=== PATIENT | female | born 2000 | race Caucasian/White ===

== ENCOUNTER 2021-01-29 17:55 | Emergency (ER) | payer OTHER ==
[~2021-01-29] VITALS: Ht 139.7 cm; Wt 50.0 kg
[~2021-01-29 17:55] MED LIST: AMOXICILLIN/PO400 MG PO; MOTRIN, CH20 MG/1 ML OR
[2021-01-29] MEDS ORDERED: ZOFRAN4 MG/TAB PO ×2 (19:15→20:34)
[2021-01-29 19:22] VITALS: BP 135/89
== END 2021-01-29 19:35 | disposition home or self-care (01) ==
LOC: ED 17:55
DX: B34.9 Viral infection, unspecified (principal); Z20.822 Contact with and (suspected) exposure to COVID-19

== ENCOUNTER 2021-04-23 11:52 | Emergency (ER) | payer OTHER ==
[~2021-04-23] VITALS: Ht 139.7 cm; Wt 59.1 kg
[~2021-04-23 11:52] MED LIST changes: +ZOFRAN4 MG/TAB PO
[2021-04-23 12:15] VITALS: BP 120/74
== END 2021-04-23 13:38 | disposition home or self-care (01) ==
LOC: ED 11:52
DX: S90.121A Contusion of right lesser toe(s) without damage to nail, initial encounter (principal); V58.4XXA Person boarding or alighting a pick-up truck or van injured in noncollision transport accident, initial encounter